=== PATIENT | female | born 1970 | race Hispanic/Latino ===

== ENCOUNTER 2024-07-06 07:05 | Emergency (ER) | payer OTHER ==
[~2024-07-06] VITALS: Ht 162.6 cm; Wt 70.8 kg
[~2024-07-06 07:05] MED LIST: PRILOSEC OTC20 MG PO
[2024-07-06] MEDS ORDERED: ATORVASTATIN CA20 MG PO (07:30)
[2024-07-06] MEDS ORDERED: METFORMIN HCL500 MG PO (07:30)
[2024-07-06] MEDS ORDERED: ondansetron HCL 4 MG/2 ML VIAL IV ONE (07:30)
[2024-07-06] MEDS ORDERED: KETOROLAC TROMETHAMINE 15 MG/ML VIAL IV ONE (07:30)
[2024-07-06] MEDS ORDERED: SODIUM CHLORIDE 0.9% 1,000 ML IV ONE (07:30)
[2024-07-06 07:48] LABS: BASOPHILS 0.3 % (0-2); EOSINOPHILS 4.8 % (0-6); HEMATOCRIT 36.6 % (35.0-50.0); HEMOGLOBIN 12.5 g/dL (12.0-18.0); LYMPHOCYTES 39.5 % (24-44); MCH 30.2 (27-36); MCHC 34.3 g/dl (30-36); MCV 88.2 fl (81-99); MONOCYTES 8.9 % (0-12); NEUTROPHILS 46.5 % (39-80); PLATELET COUNT 276 K/uL (140-440); RBC 4.15 M/ul (4.3-5.7); RDW 13.2 (10.5-15.0)
[2024-07-06 08:03] LABS: ALBUMIN 3.5 g/dL (3.4-5.0); ANION GAP 15.3 (7-21); BILIRUBIN, TOTAL 0.4 mg/dL (0.2-1.0); CALCIUM 8.4 mg/dL (8.5-10.1); CREATININE, SERUM 0.4 mg/dL (0.55-1.02); POTASSIUM 4.3 mmol/L (3.5-5.1)
[2024-07-06 08:49] LABS: BILIRUBIN, URINE NEGATIVE (negative); BLOOD/HGB, URINE TRACE-I (Negative); KETONE, URINE NEGATIVE (Negative); LEUK ESTERASE, URINE NEGATIVE (negative); NITRITE, URINE NEGATIVE (negative)
[2024-07-06 09:25] LABS: BACTERIA, URINE NONE SEEN /hpf (negative); CASTS, URINE NONE SEEN \\lpf; COLLECTION TYPE, URINE CLEAN CATCH; CRYSTALS, URINE NONE SEEN (0-1+); EPITHELIAL CELLS, URINE 0 /lpf (0-1+); WHITE BLOOD CELLS, URINE 0-1 /HPF (0-5)
[2024-07-06 09:26] LABS: REFLEX CULTURE, URINE No (No)
[2024-07-06] MEDS ORDERED: ONDANSETRON ODT8 MG PO (09:47)
[2024-07-06] MEDS ORDERED: DICYCLOMINE HCL20 MG PO (09:47)
[2024-07-06 10:00] VITALS: BP 136/80
== END 2024-07-06 10:00 | disposition home or self-care (01) ==
LOC: ED 07:05
PROVIDERS: Emergency Medicine
DX: R10.30 Lower abdominal pain, unspecified (principal); R10.10 Upper abdominal pain, unspecified; E11.9 Type 2 diabetes mellitus without complications; Z79.899 Other long term (current) drug therapy; Z79.1 Long term (current) use of non-steroidal anti-inflammatories (NSAID); Z79.84 Long term (current) use of oral hypoglycemic drugs
CPT/HCPCS: 36415; 74177; 80053; 81001; 83690; 85025; 96375; 99284; J1885; J2405; J7030; Q9967